=== PATIENT | female | born 1970 | race Asian ===

== ENCOUNTER 2021-09-21 19:34 | Emergency (ER) | payer MEDICARE, OTHER ==
[~2021-09-21] VITALS: Ht 160 cm; Wt 72.9 kg
[2021-09-21 19:39] VITALS: BP 163/82
[2021-09-22 03:57] LABS: Alanine Aminotransferase 29 U/L (13-56); Albumin 3.8 g/dL (3.4-5.0); Anion Gap 8 (5-15); Aspartate Aminotransferase 17 U/L (15-37); BUN/Creatinine Ratio 13.4; Blood Alcohol < 3.0 mg/dL (0-5); Blood Urea Nitrogen 9 mg/dL (7-18); Carbon Dioxide 25 mmol/L (21-32); Chloride 107 mmol/L (98-107); GFR African American 120 mL/min; GFR Non-African American 99 mL/min; Glucose 135 mg/dL (74-106); Potassium 3.7 mmol/L (3.5-5.1); Sodium 140 mmol/L (136-145)
[2021-09-22 03:59] LABS: Alkaline Phosphatase 83 U/L (45-117); Bilirubin, Total 0.4 mg/dL (0.2-1.0); Salicylate 2.3 mg/dL (2.8-20.0); Total Protein 7.5 g/dL (6.4-8.2)
[2021-09-22 04:05] LABS: Acetaminophen < 2.0 ug/mL (10-30)
== END 2021-09-22 04:44 | disposition home or self-care (01) ==
LOC: ER 19:34 → EDBD 19:34 → ER 09-22 04:44
DX: R53.1 Weakness (principal); I10 Essential (primary) hypertension; F20.9 Schizophrenia, unspecified
CPT/HCPCS: 36415; 80053; 80320; 80329

== ENCOUNTER 2021-10-29 09:36 | Emergency (ER) | payer OTHER, MEDICAID ==
[~2021-10-29] VITALS: Ht 162.6 cm; Wt 60.0 kg
[2021-10-29 09:44] VITALS: BP 169/102
[2021-10-29 10:52] LABS: Basophils # (auto) 0 10 ^3/uL (0-0.2); Basophils % (auto) 0.6 % (0.0-2.0); Eosinophils # (auto) 0.1 10 ^3/uL (0-0.8); Eosinophils % (auto) 1.3 % (0.0-7.0); Hematocrit 32.3 % (36.0-46.0); Hemoglobin 9.9 g/dL (12.2-16.2); Lymphocytes # (auto) 1.7 10 ^3/uL (0.4-5.4); Mean Corpuscular Hemoglobin 21.3 pg (28.0-32.0); Mean Corpuscular Hgb Conc. 30.6 g/dL (32.0-36.0); Mean Corpuscular Volume 69.6 fL (80.0-100.0); Monocytes # (auto) 0.3 10 ^3/uL (0-1.3); Monocytes % (auto) 5.7 % (0.0-12.0); Neutrophils # (auto) 3.6 10 ^3/uL (1.6-8.6); Neutrophils % (auto) 62.4 % (37.0-80.0); Nucleated Red Blood Cells % 0.1 %; Red Blood Cells 4.65 10^6/uL (4.0-5.20); White Blood Cell 5.8 10^3/uL (4.4-10.8)
[2021-10-29 10:54] LABS: Red Cell Distribution Width 20.8 % (11.8-14.3)
[2021-10-29 11:05] LABS: Potassium 3.5 mmol/L (3.5-5.1)
[2021-10-29 11:11] LABS: Albumin 3.4 g/dL (3.4-5.0); BUN/Creatinine Ratio 14.8; Bilirubin, Total 0.3 mg/dL (0.2-1.0); Calcium 8.5 mg/dL (8.5-10.1); Total Protein 6.8 g/dL (6.4-8.2)
== END 2021-10-29 15:41 | disposition home or self-care (01) ==
LOC: EDBD 09:36 → ER 09:36
DX: R53.1 Weakness (principal); E86.0 Dehydration; I10 Essential (primary) hypertension; Z59.00 Homelessness unspecified
CPT/HCPCS: 36415; 80053; 84484; 85025; 93005

== ENCOUNTER 2021-10-29 23:59 | Emergency (ER) | payer OTHER, MEDICAID ==
[~2021-10-29] VITALS: Ht 165.1 cm; Wt 78.1 kg
[2021-10-30 00:36] VITALS: BP 157/92
== END 2021-10-30 03:17 | disposition left against medical advice (07) ==
LOC: ER 23:59
DX: F41.9 Anxiety disorder, unspecified (principal); I10 Essential (primary) hypertension; Z53.29 Procedure and treatment not carried out because of patient's decision for other reasons

== ENCOUNTER 2021-11-01 11:48 | Emergency (ER) | payer OTHER, MEDICAID ==
[~2021-11-01] VITALS: Ht 162.6 cm; Wt 72.0 kg
[2021-11-01 12:42] VITALS: BP 158/101
== END 2021-11-01 12:55 | disposition left against medical advice (07) ==
LOC: ER 11:48 → EDBD 11:48 → ER 12:55
DX: E86.0 Dehydration (principal); Z53.21 Procedure and treatment not carried out due to patient leaving prior to being seen by health care provider